=== PATIENT | male | born 1940 | race Two or more races ===

== ENCOUNTER 2019-09-14 09:56 | Day surgery (SDC) | payer OTHER ==
[2019-09-08 16:16] LABS: BASOPHIL % 0.3 % (0-2); PLATELET COUNT 202 x10^3mcL (130-400)
[2019-09-08 16:19] LABS: ALBUMIN 3.7 g/dL (3.4-5.0); ALKALINE PHOSPHATASE 99 U/L (46-116); ALT/SGPT 24 U/L (16-63); AST/SGOT 15 U/L (15-37); BILIRUBIN TOTAL 0.76 mg/dL (0.20-1.00); CALCIUM 8.5 mg/dL (8.5-10.1); CARBON DIOXIDE 24.5 mmol/L (21-32); CHLORIDE SERUM 104 mmol/L (98-107); CREATININE SERUM 1.5 mg/dL (0.7-1.3); GLUCOSE SERUM 170 mg/dL (74-106); POTASSIUM SERUM 4.2 mmol/L (3.5-5.1); SODIUM SERUM 138 mmol/L (136-145); TOTAL PROTEIN, SERUM 7.2 g/dL (6.4-8.2)
--- NOTE | 2019-09-12 08:02 | NUR ---
COPIES OF LAB, EKG AND CXR RESULTS WAS FAXED TO DR. DOLL'S OFFICE AND SENT TO ANESTHESIOLOGIST FOR REVIEW.
--- NOTE | 2019-09-12 13:11 | NUR ---
DR. GLYNN, ANESTHESIOLOGIST DID NOT HAVE ANY FURTHER ORDER AFTER REVIEWING THE ALL THE LAB, EKG AND CXR RESULTS.
[~2019-09-14] VITALS: Ht 170.2 cm; Wt 77.1 kg
[2019-09-14 10:33] VITALS: BP 145/65
[2019-09-14 15:50] VITALS: BP 124/78
== END 2019-09-14 15:40 | disposition home or self-care (01) ==
LOC: DS 09:56 → OR 11:30 → DS 15:40
PROVIDERS: ATTEND Surgery
DX: K43.0 Incisional hernia with obstruction, without gangrene (principal); Z11.59 Encounter for screening for other viral diseases; I10 Essential (primary) hypertension; R73.03 Prediabetes; Z85.46 Personal history of malignant neoplasm of prostate; Z79.899 Other long term (current) drug therapy
CPT/HCPCS: C1781; J0330; J0690; J2175; J2250; J3010; J3490; U0003-CS